=== PATIENT | male | born 1945 | race Caucasian/White ===

== ENCOUNTER 2019-03-19 17:27 | Inpatient (IN) | payer OTHER ==
--- NOTE | ~2019-03-19 | D ---
[facility] [place] [address] DISCHARGE SUMMARY Name: BRANDON BACH Room #: 527B-B DIS IN M.R.#: [id number] Admission: 03/19/19 Attend Phys: Alfred Rodriguez DO Discharge: 03/26/19 Date of : 41 Report #: [id number] THIS REPORT FOR: //name// CC: Alfred Chase DATE OF SERVICE: 03/26/2019 INPATIENT PSYCHIATRIC DISCHARGE SUMMARY ATTENDING PHYSICIAN: Alfred Rodriguez DO. INVENTORY CONTROL ASSOCIATE AT THE TIME OF DISCHARGE: Lisette Dash M.D. DISCHARGE DIAGNOSES: Major neurocognitive disorder, possibly due to Lewy body disease with behavioral disturbance, improved. Medical comorbidities include degenerative joint disease, ascending aortic dilatation, hypertension which is stable, sick sinus syndrome, heart block, I believe he has a pacemaker placed. DISCHARGE DIET: Regular. ACTIVITY LEVEL: As tolerated. The patient will require 24/7 supervision and assistance. He is going back, I believe, to [facility]. DISCHARGE MEDICATIONS: As follows: Depakote ER 750 mg at bedtime for impulse control, multivitamin 1 tab p.o. daily, Flonase 2 sprays each nostril daily, aspirin 81 mg p.o. daily, vitamin D 1000 international units p.o. daily, lisinopril 5 mg p.o. daily, simvastatin was stopped due to lack of benefit given limited life expectancy. Psychiatric and medical care will be per the receiving nursing facility. LABORATORY DATA: Laboratories this admission, 03/22/2019, looks like BMP was done, sodium was 137, potassium 3.9, chloride 99, bicarbonate 27, anion gap 11, BUN 24, creatinine 1.0, estimated GFR 73, glucose 145, calcium 10.1. I believe this patient may have originated to [facility], so other labs were done at outside facility, there was a head CT from 07/25/2014 which showed mild diffuse atrophy. REASON FOR ADMISSION: As follows: A 73-year-old male brought in for attempting to leave house, becoming combative, decreased ability to care for himself, not cooperative in the memory care unit he was at. HOSPITAL COURSE: The patient was admitted to the Geriatric Psychiatry Unit on [address] [address] DISCHARGE SUMMARY Name: BRANDON BACH [place] Room #: 527B-B DIS IN ..#: [id number] Admission: 03/19/19 Attend Phys: Alfred Rodriguez, DO Discharge: 03/26/19 Date of : 41 Report #: [id number] Sunday couple of days following his admission. He had an acute dystonic reaction and this was attributed to olanzapine. So there was no further antipsychotic trial conducted. He had had a prior unclear, but obviously on retrospect, was bad reaction to Seroquel, so he is exquisitely sensitive to neuroleptics. I went ahead and continued with Depakote for some reason, I thought I had gotten a Depakote level, but I did not at time of discharge, so the patient is not appearing toxic during his stay after antipsychotic was discontinued. He would generally be in his wheelchair self-dialoguing. Family meeting was had where we discussed need for hospice. They did elect consultation with [facility]. PHYSICAL EXAMINATION: Nonambulatory. MENTAL STATUS EXAMINATION: This is a well-developed, disheveled male, appearing at least stated age. Attention impaired. Concentration impaired. Speech fluent, sometimes nonsensical. No psychomotor agitation or psychomotor retardation. Denied auditory, visual, or tactile hallucinations. Denied suicidal intent or plan. Denied hopelessness, helplessness or homicidal intent or plan. Memory noted to be impaired. Insight limited. Judgment limited. Fund of knowledge below average. PROGNOSIS: For this patient is guarded to poor given his age, having a neurodegenerative disorder with suspicion of their being Lewy body disease at the heart of his neurocognitive deficits. By: 0201 0219 Alfred Rodriguez, DO /nt
[2019-03-19 17:15] VITALS: BP 140/64
[~2019-03-19 17:27] MED LIST: ASPIR 8181 MG PO; ASPIRIN EC325 M1 PO; CENTRUM SILVER1 EAC2 PO; FISH OIL 1,001000 M2 PO; FLONASE 0.05%50 MCG NASAL; LISINOPRIL10 MG PO; LISINOPRIL5 MG PO; OMEGA-31000 M1 PO; SIMVASTATIN5 MG PO; ST. JOSEPH ASPI81 MG PO; VITAMIN D1000 UNI1 PO; VITAMIN D2000 UNI1 PO; VITAMIN D2000 UNIT PO; XANAX 0.5 MG0.5 MG PO; ZOCOR40 MG PO
[2019-03-19 17:30] VITALS: BP 140/64
--- NOTE | 2019-03-19 18:47 | NUR ---
1718: Admitted to room 527-B via gerney from [facility], accomp by /DPOA Selena. Pt alert, oriented to name only, color pale, skin w/d. Initial assessment completed, pt unable to follow instructions, wandering through room and into halls, high fall risk potential noted. COMMERCIAL PARTS PROFESSIONAL assigned to stay with pt due to stumbling and observing pt pouring coffee on floor, becomes beligerent and verbally agrressive with re-direction. Food tray ordered, states that pt needs to be fed meals.
--- NOTE | 2019-03-20 04:26 | NUR ---
ASSUMED CARE OF THE PT AT 191 PM. THE PT WAS FED DINNER ONCE IT CAME UP FROM THE KITCHEN, HE ATE 25%. HE HAD BEEN GOING AROUND THE UNIT SPILLING DRINKS ON THE FLOOR. YELLING AT PEERS, WALKING INTO OTHER PT'S ROOMS. CALLED THE PHYSICIAN GEAR ROOM KEEPER AND HE WAS GIVEN A DOSE OF GEODON 15 MG IM, ORDERED. THE PT BECAME A 1:1 WHILE AWAKE, THE PT WAS ASSISTED BACK TO BED AFTER A FEW HOURS, WHEN HE BECAME SLEEPY. THE PT KEPT MOVING AROUND IN BED, KICKING, BITING AT STAFF, KEPT GRABBING AT THE AIR SEVERAL TIMES. THIS STRATEGY DIRECTOR CALLED THE PHYSICIAN GEAR ROOM KEEPER, WHO ORDERED FOR ATIVAN 1 MG IM AND HALDOL 5 MG IM, WHICH WERE GIVEN ORDERED. CONTINUES ON 12 MINUTE CHECKS WHILE HE IS ASLEEP.
[2019-03-20 08:20] VITALS: BP 142/75
--- NOTE | 2019-03-20 16:57 | NUR ---
Niya spoke with spouse briefly ans she asked for a family meeting next week. Dr Wright asked for one to be set up. This was established for at 11am
--- NOTE | 2019-03-20 18:25 | NUR ---
PATIENT WAS ASLEEP WHEN CARE ASSUMED THIS MORNING, STAFF DID WAKE PATIENT UP FOR BREAKFAST, HE HAD A FEW BITES AND WENT BACK TO SLEEP. PATIENT SLEPT THROUGH LUNCH, BREATHING EVEN/UNLABORED. PATIENT WOKE UP DURING EVENING VISITATION. HAD A NICE VISIT WITH . INFORMATION ON DEPAKOTE AND ZYPREXA GIVEN TO PATIENT'S PER HER REQUEST. PATIENT ATE SUPPER WITH ASSIST OF STAFF. PATIENT IS VERY CONFUSED, ATTEMPTING TO GET OUT OF WHEELCHAIR WITHOUT STAFF ASSIST, HE REQUIRES CONSTANT REDIRECTION, A VERY HIGH FALL RISK, GAIT UNSTEADY. NO AGITATION OR AGGRESSIVE BEHAVIOR NOTED AT THIS TIME. PATIENT IS UNABLE TO RESPOND APPROPRIATELY TO ASSESSMENT QUESTION DUE TO COGNITIVE IMPAIREMENT. PATIENT RESPONDING TO INTERNAL STIMULI, TALKING TO UNSEEN OTHERS, ATTEMPTING TO SENIOR SALES ENGINEER OBJECT ON THE FLOOR WHEN THERE IS NOTHING ON THE FLOOR. WILL CONTINUE TO REDIRECT, AND MONITOR FOR SAFETY.
[2019-03-20 21:43] VITALS: BP 124/83
--- NOTE | 2019-03-21 00:13 | NUR ---
Care assumed of patient at 1915: Patient alert and oriented to person only. Patient seated in w/c in day room at start of shift. Patient restless and anxious. Patient was not able to voice any concerns or goals. Patient denied pain. Patient was able to eat 100% snack with set up assist only. Patient had difficulty staying seated and needed frequent re-direction of safety measures. Patient took medication whole without difficulty. Patient was able to report that he needed to use the bathroom. Continent and incontinent of bladder this shift. Patient seen picking at the table and the floor. When asked what patient was doing, he only mumbled. No aggression shown this shift. Patient assisted to bed and has been resting quietly since.
[2019-03-21 09:09] VITALS: BP 85/45
--- NOTE | 2019-03-21 13:50 | NUR ---
ASSUMED CARE OF PT AT APPROX 0700. PT IS ALERT. PT IS CONFUSED AND AGITATED EASILY BUT ALSO ABLE TO CALM EASILY WELL. PT IS PRESENT FOR ACTIVITIES. ASSESSMENT CHARTED. NAD DISTRESS NOTED. NO SI PRESENT. NON COMBATIVE.
--- NOTE | 2019-03-21 17:13 | NUR ---
CONCERNED WITH PT HAVING POSSIBLE REACTION TO NEW MEDICATION. DR CALLED AND NEW ORDERS RECEIVED. CALLED BACK AND UPDATED WITH PLAN AND ORDERS.
[2019-03-21 19:26] VITALS: BP 154/104
--- NOTE | 2019-03-22 02:41 | NUR ---
Care assumed of patient at 1915: Patient resting in bed at start of shift. Patient drowsy. Patient opens eyes in response to his name called and touch. Patient has mumbled speech. Patient was able to drink 60cc water. Patient ate a couple bites applesauce with whole medication. Patient smiling at times. Patient has involuntary movements to bilateral upper and lower extremities throughout the night. Patient extremities appeared tense at times at the start of shift. Patient now appears relaxed and resting well. Patient temp 100.3 at start of shift. Room was cooled, large blankets removed. After one hour, temp 99.6 axillary. Patient has been turned q2 hours. Checked and changed for incontinence q2 hours. Patient has been calm and cooperative. No agitation or aggression observed. No s/s of AH/VH or delusional behavior observed.
--- NOTE | 2019-03-22 11:13 | NUR ---
699: Report rec from noc shift, care assumed. [id number]: Transferred to w/c with assist of 2 staff, pt posture is ridig, unable to stand up straight, minimal weight bearing. To DR via w/c, alert, responds to name, minimal verbalization, answers simple questions with 1 word answers, takes meds whole in pudding. Unable to participate in group therapy due to cognitive impairment.
[2019-03-22 12:31] LABS: CALCIUM 10.1 mg/dL (8.5-10.1); POTASSIUM 3.8 mmol/L (3.5-5.1)
[2019-03-22 20:05] VITALS: BP 116/83
--- NOTE | 2019-03-23 00:53 | NUR ---
Care assumed of patient at 1730: Patient seated in w/c in the day room with other peers. Lap belt in place. Patient leaning forward, trying to touch the floor. Appears he is trying to fern picker things that are not present. Patient assisted to sitting upright but would then lean back forward. Patient fed 25% HS snack of pudding which he appeared to enjoy. Patient then stated "no more". Patient primarily has mumbled speech. Patient was able to produce clear, 1-2 word phrases at times. Patient took HS medication whole with water without difficulty. No s/s of pain or discomfort noted. Patient assisted to bed with max assist x2. Incontinent of bladder. Patient turned q2 hours when in bed. Checked and changed q2 hours and PRN. When patient was assisted to bed, he attempted to hit staff, started yelling and said a few curse words. Once patient was changed, he was able to fall asleep without difficulty and has been resting quietly.
[2019-03-23 09:14] VITALS: BP 101/54
--- NOTE | 2019-03-23 10:15 | H ---
[facility] [place] [address] HISTORY AND PHYSICAL Name: BRANDON SY Room #: 527B-B ADM IN M.R.#: [id number] Admission: 03/19/19 Attend Phys: Alfred Rodriguez DO Discharge: Date of : 41 Report #: [id number] THIS REPORT FOR: //name// CC: Alfred Chase DATE OF SERVICE: 03/19/2019 INPATIENT PSYCHIATRIC EVALUATION ATTENDING RAGHAVCIAN: Alfred Rodriguez DO SUPERVISOR LIME: Teresa Campos MD REASON FOR ADMISSION: Dementia with behavioral disturbance. SOURCES OF INFORMATION: Discussion with , outside records from [facility] nursing notes. HISTORY OF PRESENT ILLNESS: This is a 73-year-old male with fairly advanced stage of dementia. There were a couple of affidavits, the patient's , Selena Sy states he is suffering from dementia. He has diminished eyesight to the point that it exacerbates paranoia and hallucinations. He is confused when he no longer recognizes me as a spouse and becomes determined to carry out admission, attempts to leave the house or wherever he is, becomes combative. He is physically torn the door from frame down to get out, pulled the towel bar off to use combatively, becomes hateful in language and actions, unsure of triggers. The Emergency Room physician at [facility] is August Estrada, stated he has had increasing combativeness, decreased ability to care for self. recently moved him to [facility], but he is not cooperative, he hallucinates, responding to external stimuli. He required physical and chemical restraints upon arrival to the ED, staff at [facility] facility stated they cannot care for him. He has multiple documented reports of threatening to kill everyone in his facility. searched for Geriatric Psych facilities, but his disabilities have grown grave enough that he requires immediate attention. [facility] He has been confused, combative x 2 days. He was restrained by EMS, security at bedside. His Alzheimer's disease gotten gradually worse. The patient was not able to hold a conversation. EKG and labs obtained. The patient reportedly threatened to kill everyone. PAST MEDICAL HISTORY: Includes: Ascending aortic dilatation, mild, measuring 3.8 cm per echo, cardiac pacemaker in situ, pacemaker placement in [facility] -dual chamber, degenerative joint disease, essential hypertension, heart block atrioventricular, kidney stones, mixed hyperlipidemia, [facility] [address] [place] [address] HISTORY AND PHYSICAL Name: BRANDON SY Room #: 527B-B ADM IN M.R.#: [id number] Admission: 03/19/19 Attend Phys: Alfred Rodriguez, DO Discharge: Date of : 41 Report #: [id number] osteoarthritis, sick sinus syndrome, syncope. SECONDARY DIAGNOSIS: Early onset of Alzheimer's disease. PAST SURGICAL HISTORY: Appendectomy, cardiac pacemaker placement, eye surgery, cataract. FAMILY HISTORY: Cancer in his father, cancer in his mother. SOCIAL HISTORY: Never smoked. Alcohol use says yes, but he is not smoking at [facility]. REVIEW OF SYSTEMS: Not able to be obtained due to his degree of his dementia, lack of his cooperation. PHYSICAL EXAMINATION: They found mild swelling to the right knee that was resolved, otherwise. GENERAL: He is thin male, ambulatory, appears somewhat undernourished. LABORATORY DATA: Lab work from [facility], urinalysis was negative. Toxicology screen was negative. CBC: H and H 15.0 and 44, white count 8.54, platelet count 218. CMP was within normal limits including sodium 139, potassium 3.9, chloride 102, bicarbonate 25, anion gap 13, calcium 9.2, glucose 97, total protein 7.6, EGFR male [id number] 82. Troponin less than 0.01. Head CT was done that showed moderate cerebral volume loss, moderate chronic small vessel disease. ALLERGIES: No known allergies. CURRENT MEDICATIONS: Tylenol 325 mg, alprazolam 0.5 mg, atorvastatin 10 mg daily, cetirizine 10 mg p.o. daily, donepezil 10 mg daily, memantine 5 mg by mouth twice per day, sertraline 50 [address] [facility] for healthcare. Notes from this facility include the patient is very agitated and tried to leave a resident down, combative, saying he was going to kill everyone. This was on 03/17/2019. On my examination, he is lying in bed, minimally responsive, says he is okay. CURRENT MEDICATIONS IN THE HOSPITAL: Hydralazine 10 mg p.o. q. 6 p.r.n. for hypertension, multivitamin 1 tablet p.o. daily, lisinopril 5 mg p.o. daily, fluticasone 2 sprays each nostril daily, cholecalciferol 1000 International Units daily, aspirin 81 mg p.o. daily, atorvastatin 20 mg daily, routine p.r.n. I think with regards to this patient, we need to start him on a regimen of olanzapine and Depakote, I am going to call his and discuss this. MENTAL STATUS EXAMINATION: Attention impaired. Concentration impaired. Speech [address] [address] HISTORY AND PHYSICAL Name: BRANDON SY Room #: 527B-B ADM IN M.R.#: [id number] Admission: 03/19/19 Attend Phys: Alfred Rodriguez DO Discharge: Date of : 41 Report #: [id number] soft, slow. No psychomotor agitation, some psychomotor retardation. Denied auditory, visual, or tactile hallucinations. Denied suicidal intent or plan. Denied homicidal intent or plan. Memory known to be impaired. Insight impaired. Judgment impaired. Fund of knowledge well below average. FORMULATION: A 73-year-old male brought from the [facility] to [facility]. DIAGNOSIS: Major neurocognitive disorder with behavioral disturbance. PLAN: Evaluate, stabilize, obtain collateral. Start olanzapine 2.5 mg twice a day and Depakote 750 ER at bedtime. We may call the to discuss. ESTIMATED LENGTH OF STAY: 10-14 days. STRENGTHS: He is insured. He is . WEAKNESSES: Advancing progressive neurodegenerative disease. <ELECTRONICALLY SIGNED> By: Alfred Rodriguez DO 03/23/19 1015 [id number] 1817 Alfred Rodriguez DO /nt
--- NOTE | 2019-03-23 10:42 | NUR ---
SW attempted to completed assessment with Pt, however pt was not reposive to questions. Sw called Pt's , Selena Sy [phone], to complete the assessment. Mrs. Sy had a concern of if the current placment was ble to care for the Pt's needs. She also expressed she would like and assessment of Pt's dementia to know what stage he was in and his prognosis. Mrs. Sy did not have any further questions or concerns. A family meeting will be held 03-24-19 @ 11am.
--- NOTE | 2019-03-23 11:28 | NUR ---
ASSUMED CARE OF PT AT 0740. PT IS ALERT & DISORIENTED. DENIES PAIN. IS UP WITH MAX ASSIST X2 TRANSFER TO W/C. FALL PRECAUTIONS & FREQUENT MONITORING CONTINUED THIS SHIFT. DENIES PAIN. IS Q2H TURN. IS INCONT TO B&B. PT IS STABLE. LABS & VITALS REVIWED. PT IS CURRENTLY IN DINNING ROOM AWAITING LUNCH. WILL CONTINUE TO MONITOR.
[2019-03-23 20:17] VITALS: BP 134/83
[2019-03-23 23:37] VITALS: BP 134/83
--- NOTE | 2019-03-24 01:27 | NUR ---
PATIENT WAS SITTING IN WC IN DINING ROOM AT START OF MANAGER SPECIAL EVENTS. HE HAS LAP COURTNEY ON IN PLACE AND NOT TOO TIGHT. PATIENT IS SITTING WITH UPPER BODY BENT OVER LAP. SPOKE WITH PATIENT AND TRIED TO SIT HIS BODY UPWARD MORE BUT HE COULD NOT HOLD IT UP. HE DID TAKE HIS MEDS USING A STRAW FOR WATER. HE IS ALERT TO SELF ONLY. HE WAS COOPERATIVE AND WITH HAPPY DEMEANOR THIS EVENING. PATIENT DENIES PAIN. PATIENT ASSISTED TO BED FOR THE NIGHT AND HE IS SLEEPING STRETCHED OUT FLAT. APPEARS COMFORTABLE. NO NEGATIVE BEHAVIORS NOTED.
[2019-03-24 09:43] VITALS: BP 120/68
--- NOTE | 2019-03-24 18:14 | NUR ---
0715: Report rec from noc shift, care assumed. 5520-1125: Up in w/c, transfers with staff x1, pt is weak, color is pale, minimal verbal response with assessment. Staff feeds pt a.m. meal, appetite poor, takes meds whole in pudding, no swallowing difficulty noted. Posture is slumped forward while in w/c, lap bob in place for safety. 1115: here, family mtg completed.
[2019-03-24 20:01] VITALS: BP 149/74
--- NOTE | 2019-03-24 23:11 | NUR ---
Care assumed of patient at 1915: Patient alert and oriented to person only. Patient sitting in w/c at start of shift. Patient is having trouble keeping proper trunk alignment and keeps reaching for the floor, bending over. Patient needs some assistance to hold his head up. Patient ate 100% ice cream with nurse assist. Patient took medication whole without difficulty. Drank one cup of water and then ate 100% cup of yogurt. Patient incontinent of bladder. Patient denies pain or discomfort. Patient observed speaking to himself, laughing, as though he was having a conversation with someone. Patient had some difficulty falling asleep this evening. Patient reported that he wanted to sit up in bed and was observed trying to get out of bed independently. Head of bed elevated some and pillows placed to allow him lay more comfortable for him. Patient was verbally aggressive and attempted to hit staff while he was being positioned in bed. Patient is resting quietly in bed at this time.
--- NOTE | 2019-03-25 13:01 | NUR ---
Date of Admission: 03/19/19 Date of Activity Therapy Assessment: 03/22/19 Activity Goal: Increase engagement Initial Goal: 1 Individual activity/day Weekly progress towards goal: Did not achieve goals Group participation level: None Behaviors observed: Patient is not actively attending groups or alert for 1:1 recreational activities. Patient is observed sleeping in his wheelchair throughout the day and is unresponsive to prompts to communicate. Plan: No change towards goal. Continue to offer 1:1.
--- NOTE | 2019-03-25 13:03 | NUR ---
PATIENT IS ALERT TO SELF, FORGETFUL, CONFUSED. PATIENT HAS BEEN UP AND OUT IN DAY ROOM WITH ASSIST OF STAFF. PATIENT TOOK ALL MORNING MEDICATION WHOLE WITHOUT DIFFICULTY. PATIENT'S APPETITE IS GOOD, HE REQUIRES ASSIST OF STAFF TO FEED. STAFF ASSESSTED WITH BREAKFAST AND LUNCH. PATIENT DENEIS SUICIDAL AND HOMOCIDAL IDEATION, HE DENIES HAVING PHYSICAL PAIN. PATIENT IS UNABLE TO RESPOND APPROPRIATELY TO FURTHER ASSESSMENT QUESTIONS DUE TO COGNITIVE IMPAIRMENT. NO AGITATION OR AGGRESSIVE BEAHVIOR NOTED AT THIS TIME. PATIENT RESPONDING TO INTERNAL STIMULI, TALKS TO SELF AND UNSEEN OTHERS, PICKING ON EMPTY SPACE, AND ATTEMPTING PICK-UP OBJECT ON THE FLOOR, WHILE NO OBJECT PRESENT. PATIENT REQUIRES CONSTANT REDIRECTION. INCONTINENT CARE PROVIDED BY STAFF. NO SIGN OF ACUTE DISTRESS NOTED AT THIS TIME, WILL MONITOR FOR SAFETY.
--- NOTE | 2019-03-25 16:47 | NUR ---
JAI met with pt , and sister in-law to assist with a meeting with hospice providers. JAI schedule a meeting with [facility], [facility]ice, and [facility]. Pt stated that she wanted to signed a contract with [facility]. JAI sent update notes to Kathleen for the pt to d/c on March 26, 2019. JAI will schedule transportation for the pt. JAI will follow-up with pt.
[2019-03-25 19:55] VITALS: BP 132/66
--- NOTE | 2019-03-25 23:45 | NUR ---
Care assumed of patient at 1915: Patient sitting in w/c in day room at start of shift. Patient alert and oriented to person. Patient doesn't appear to be leaning over in w/c as much as previous 4 days. Patient holding up his head and attempting to make more eye contact when spoken too. Patient took HS medication whole without difficulty. Patient ate 100% HS snack with being fed by staff. Patient appears less irritable this shift. No physical aggression observed. Patient occasionally yelling out "hey, hey" while ADL cares are being provided. Patient incontinent of bladder. Checked/changed and re-positioned q2 hours this shift. Patient presents with flat affect, mumbled speech. Patient assisted to bed with max assist x2 staff and has been resting quietly.
[2019-03-26 08:00] VITALS: BP 117/66
[2019-03-26] MEDS ORDERED: DEPAKOTE ER250 MG PO (11:41)
--- NOTE | 2019-03-26 12:09 | NUR ---
Patient Name: BRANDON BACH Admission Date: 03/19/19 DISCHARGE PLAN: Pt will be d/c to [facility] [place] Assessment: Pt was assessed by Dr. rodriguez, and diagnosed with Major Neurocognitive Disorder Level II Assessment: None Transportation: Pt will be transported [facility] Special Instructions/Notes: Dr. Rodriguez deemed the pt appropriate for hospice. SW assisted family with finding the appropriate hospice. Pt signed a contract with [facility]. DISCHARGE TO FACILITY: Memory Care Facility: [facility] Fax: Address: [address] [place] [address] Contact Name: Deya PCP: CARLOS Psychiatrist: NAZARIO Psychiatrist
--- NOTE | 2019-03-26 12:57 | NUR ---
DISCHARGED VIA W/C VAN TO [facility]. HAD LARGE BM PRIOR TO D/C REPORT CALLED TO RN. BELONGINGS SENT WITH .
== END 2019-03-26 13:08 | DRG 57 ==
LOC: SBH 17:27
PROVIDERS: ADMIT Psychiatry & Neurology Psychiatry
DX: G31.83 Neurocognitive disorder with Lewy bodies (principal); F02.81 Dementia in other diseases classified elsewhere, unspecified severity, with behavioral disturbance; F32.9 Major depressive disorder, single episode, unspecified; M19.90 Unspecified osteoarthritis, unspecified site; G30.9 Alzheimer's disease, unspecified; I77.819 Aortic ectasia, unspecified site; I10 Essential (primary) hypertension; I49.5 Sick sinus syndrome; I45.9 Conduction disorder, unspecified; E78.2 Mixed hyperlipidemia; Z87.442 Personal history of urinary calculi; Z95.0 Presence of cardiac pacemaker; Z90.49 Acquired absence of other specified parts of digestive tract; Z79.899 Other long term (current) drug therapy
CPT/HCPCS: 10880